=== PATIENT | female | born 1950 | race African-American/Black ===

== ENCOUNTER 2017-02-12 14:03 | Inpatient (IN) | payer MEDICARE, BC ==
[~2017-02-12] VITALS: Ht 162.6 cm; Wt 108.0 kg
[~2017-02-12 14:03] MED LIST: ATOR10TA69 PO; CLOP75TA33 PO; GABA-290 PO; LEVO0.5P2 PO; MIDO10TA PO; REN800 PO
[2017-02-12] MEDS ORDERED: DEXTROSE 50% WATER 50ML SYRINGE IV PRN (16:00)
[2017-02-12] MEDS ORDERED: SIMETHICONE 80MG TABLET CHEW PO PRN (16:15)
[2017-02-12] MEDS ORDERED: MAGNESIUM/ALUMINUM HYDROXIDE/SIMETHICONE 30ML UDC PO PRN (16:15)
[2017-02-12] MEDS ORDERED: ONDANSETRON HCL 4MG/2ML VIAL IV PRN (16:15)
[2017-02-12] MEDS ORDERED: IPRATROPIUM/ALBUTEROL 0.5-3(2.5)MG/3ML NEB HHN PRN (16:15)
[2017-02-12] MEDS ORDERED: DIPHENHYDRAMINE 25MG CAPSULE PO PRN (16:15)
[2017-02-12] MEDS ORDERED: NITROGLYCERIN 0.4MG TABLET SL SL PRN (16:15)
[2017-02-12] MEDS ORDERED: BISACODYL 10MG SUPP PR PRN (16:15)
[2017-02-12] MEDS: DOCUSATE SODIUM 100MG CAPSULE PO SCH ×2 (16:52→16:58)
[2017-02-12] MEDS: SEVELAMER CARBONATE 800 MG TABLET PO SCH (16:52)
[2017-02-12] MEDS: BLOOD SUGAR DIAGNOSTIC STRIP TEST SCH ×2 (16:55→20:58)
[2017-02-12] MEDS: INSULIN LISPRO 100 UNITS/ML SUBCUT SCH ×2 (16:55→20:57)
[2017-02-12] MEDS ORDERED: CLONIDINE 0.1MG TABLET PO PRN (17:45)
[2017-02-12] MEDS: ENOXAPARIN 40MG/0.4ML SYR SUBCUT SCH (17:46)
[2017-02-12] MEDS: ATORVASTATIN CALCIUM 10MG TABLET PO SCH (20:56)
[2017-02-12] MEDS: GABAPENTIN 300MG CAPSULE PO SCH (20:57)
[2017-02-12] MEDS: EPOETIN ALFA 10000UNITS/ML VIAL SUBCUT SCH (20:58)
[2017-02-12] MEDS: MIDODRINE HCL 5MG TABLET PO SCH (20:59)
[2017-02-13] MEDS ORDERED: COLISTIMETHATE SODIUM 150MG/VIAL IV SCH (05:00)
[2017-02-13] MEDS: COLISTIMETHATE 150MG in SODIUM CHLORIDE 0.9% 100ML IV SCH (05:05)
[2017-02-13] MEDS: LEVOTHYROXINE SODIUM 200MCG TABLET PO SCH (06:22)
[2017-02-13] MEDS: MIDODRINE HCL 5MG TABLET PO SCH ×3 (06:22→21:08)
[2017-02-13] MEDS: BLOOD SUGAR DIAGNOSTIC STRIP TEST SCH ×4 (06:22→21:07)
[2017-02-13] MEDS: INSULIN LISPRO 100 UNITS/ML SUBCUT SCH ×4 (06:25→21:00)
[2017-02-13] MEDS: POLYETHYLENE GLYCOL 3350 (17GM) 1 DOSE PACK PO SCH (09:00)
[2017-02-13] MEDS ORDERED: VANCOMYCIN 1 G PREMIX 200 ML IV NR (09:00)
[2017-02-13] MEDS: DOCUSATE SODIUM 100MG CAPSULE PO SCH ×2 (09:00→17:00)
[2017-02-13] MEDS: ENOXAPARIN 40MG/0.4ML SYR SUBCUT SCH (09:56)
[2017-02-13] MEDS: CLOPIDOGREL 75MG TABLET PO SCH (09:58)
[2017-02-13] MEDS: SEVELAMER CARBONATE 800 MG TABLET PO SCH ×3 (09:58→17:07)
[2017-02-13] MEDS ORDERED: PANTOPRAZOLE 40MG DR TABLET PO ONE (10:00)
[2017-02-13] MEDS: MEROPENEM 500 MG in SODIUM CHLORIDE 0.9% 50 ML IV SCH (12:37)
[2017-02-13] MEDS: ATORVASTATIN CALCIUM 10MG TABLET PO SCH (21:07)
[2017-02-13] MEDS: GABAPENTIN 300MG CAPSULE PO SCH (21:08)
[2017-02-14 05:43] LABS: HEMATOCRIT. 27.4 % (36.0-48.0); HEMOGLOBIN. 8.7 g/dL (12.0-16.0); MEAN CORPUSCULAR HEMOGLOBIN 31.4 pg (28.0-32.0); MEAN CORPUSCULAR VOLUME 98.9 fL (81.0-99.0); MEAN PLATELET VOLUME 7.4 fl (7.4-10.4); PLATELET 205 x1000/uL (130-400); RED BLOOD CELL COUNT 2.77 mill/uL (4.2-5.4); RED CELL DISTRIBUTION WIDTH 15.7 % (11.6-14.6)
[2017-02-14] MEDS: LEVOTHYROXINE SODIUM 200MCG TABLET PO SCH (06:08)
[2017-02-14] MEDS: MIDODRINE HCL 5MG TABLET PO SCH ×3 (06:09→21:09)
[2017-02-14] MEDS: BLOOD SUGAR DIAGNOSTIC STRIP TEST SCH ×4 (06:12→21:09)
[2017-02-14] MEDS: INSULIN LISPRO 100 UNITS/ML SUBCUT SCH ×4 (07:32→21:00)
[2017-02-14 08:49] LABS: PLATELET ESTIMATE NORMAL
[2017-02-14] MEDS: POLYETHYLENE GLYCOL 3350 (17GM) 1 DOSE PACK PO SCH (09:00)
[2017-02-14] MEDS: DOCUSATE SODIUM 100MG CAPSULE PO SCH ×2 (09:15→17:06)
[2017-02-14] MEDS: CLOPIDOGREL 75MG TABLET PO SCH (09:15)
[2017-02-14] MEDS: ENOXAPARIN 40MG/0.4ML SYR SUBCUT SCH (09:15)
[2017-02-14] MEDS: SEVELAMER CARBONATE 800 MG TABLET PO SCH ×3 (09:15→17:05)
[2017-02-14] MEDS: MEROPENEM 500 MG in SODIUM CHLORIDE 0.9% 50 ML IV SCH (12:56)
[2017-02-14] MEDS: COLISTIMETHATE 150MG in SODIUM CHLORIDE 0.9% 100ML IV SCH (17:05)
[2017-02-14] MEDS: ATORVASTATIN CALCIUM 10MG TABLET PO SCH (21:08)
[2017-02-14] MEDS: GABAPENTIN 300MG CAPSULE PO SCH (21:09)
[2017-02-15 06:23] LABS: EOSINOPHILS % 6.6 % (0.0-5.0); HEMATOCRIT. 30.2 % (36.0-48.0); HEMOGLOBIN. 9.6 g/dL (12.0-16.0); LYMPHOCYTES % 23.2 % (20.0-50.0); MEAN CORPUSCULAR HEMOGLOBIN 31.3 pg (28.0-32.0); MEAN CORPUSCULAR VOLUME 98.3 fL (81.0-99.0); MEAN PLATELET VOLUME 7.1 fl (7.4-10.4); MONOCYTES % 11.2 % (2.0-8.0); PLATELET 213 x1000/uL (130-400); RED BLOOD CELL COUNT 3.07 mill/uL (4.2-5.4); RED CELL DISTRIBUTION WIDTH 15.6 % (11.6-14.6)
[2017-02-15] MEDS: MIDODRINE HCL 5MG TABLET PO SCH ×3 (06:32→23:32)
[2017-02-15] MEDS: LEVOTHYROXINE SODIUM 200MCG TABLET PO SCH (06:33)
[2017-02-15] MEDS: BLOOD SUGAR DIAGNOSTIC STRIP TEST SCH ×4 (06:36→21:00)
[2017-02-15] MEDS: INSULIN LISPRO 100 UNITS/ML SUBCUT SCH ×4 (07:00→21:00)
[2017-02-15] MEDS: POLYETHYLENE GLYCOL 3350 (17GM) 1 DOSE PACK PO SCH (08:15)
[2017-02-15] MEDS: DOCUSATE SODIUM 100MG CAPSULE PO SCH ×2 (08:23→17:00)
[2017-02-15] MEDS: CLOPIDOGREL 75MG TABLET PO SCH (08:24)
[2017-02-15] MEDS: SEVELAMER CARBONATE 800 MG TABLET PO SCH ×3 (08:24→18:10)
[2017-02-15] MEDS: ENOXAPARIN 40MG/0.4ML SYR SUBCUT SCH (08:26)
[2017-02-15] MEDS: MEROPENEM 500 MG in SODIUM CHLORIDE 0.9% 50 ML IV SCH (13:05)
[2017-02-15] MEDS: EPOETIN ALFA 10000UNITS/ML VIAL SUBCUT SCH (23:30)
[2017-02-15] MEDS: GABAPENTIN 300MG CAPSULE PO SCH (23:30)
[2017-02-15] MEDS: ATORVASTATIN CALCIUM 10MG TABLET PO SCH (23:32)
[2017-02-16] MEDS: COLISTIMETHATE 150MG in SODIUM CHLORIDE 0.9% 100ML IV SCH (04:58)
[2017-02-16] MEDS: BLOOD SUGAR DIAGNOSTIC STRIP TEST SCH ×4 (06:10→21:32)
[2017-02-16] MEDS: LEVOTHYROXINE SODIUM 200MCG TABLET PO SCH (06:10)
[2017-02-16] MEDS: MIDODRINE HCL 5MG TABLET PO SCH ×3 (06:10→21:32)
[2017-02-16] MEDS: INSULIN LISPRO 100 UNITS/ML SUBCUT SCH ×4 (06:11→21:00)
[2017-02-16 07:45] LABS: BASOPHILS % 0.8 % (0.0-2.0); EOSINOPHILS % 7.8 % (0.0-5.0); HEMATOCRIT. 29.9 % (36.0-48.0); HEMOGLOBIN. 9.5 g/dL (12.0-16.0); LYMPHOCYTES % 22.8 % (20.0-50.0); MEAN CORPUSCULAR HEMOGLOBIN 31.5 pg (28.0-32.0); MEAN CORPUSCULAR VOLUME 98.6 fL (81.0-99.0); MEAN PLATELET VOLUME 7.4 fl (7.4-10.4); NEUTROPHILS % 55.6 % (40.0-76.0); PLATELET 205 x1000/uL (130-400); RED BLOOD CELL COUNT 3.03 mill/uL (4.2-5.4); RED CELL DISTRIBUTION WIDTH 15.7 % (11.6-14.6)
[2017-02-16] MEDS: ENOXAPARIN 40MG/0.4ML SYR SUBCUT SCH (08:41)
[2017-02-16] MEDS: SEVELAMER CARBONATE 800 MG TABLET PO SCH ×3 (08:41→18:00)
[2017-02-16] MEDS: DOCUSATE SODIUM 100MG CAPSULE PO SCH ×2 (08:44→17:00)
[2017-02-16] MEDS: POLYETHYLENE GLYCOL 3350 (17GM) 1 DOSE PACK PO SCH (08:44)
[2017-02-16] MEDS: MEROPENEM 500 MG in SODIUM CHLORIDE 0.9% 50 ML IV SCH (11:30)
[2017-02-16] MEDS: MEGESTROL ACETATE 400 MG/10 ML UDC PO SCH (14:58)
[2017-02-16] MEDS: ATORVASTATIN CALCIUM 10MG TABLET PO SCH (21:32)
[2017-02-16] MEDS: GABAPENTIN 300MG CAPSULE PO SCH (21:32)
[2017-02-17] MEDS: LEVOTHYROXINE SODIUM 200MCG TABLET PO SCH (06:12)
[2017-02-17] MEDS: INSULIN LISPRO 100 UNITS/ML SUBCUT SCH ×4 (06:12→20:40)
[2017-02-17] MEDS: BLOOD SUGAR DIAGNOSTIC STRIP TEST SCH ×4 (06:12→20:40)
[2017-02-17] MEDS: MIDODRINE HCL 5MG TABLET PO SCH ×3 (06:12→22:38)
[2017-02-17 07:20] LABS: BASOPHILS % 0.8 % (0.0-2.0); EOSINOPHILS % 9.4 % (0.0-5.0); HEMOGLOBIN. 9.9 g/dL (12.0-16.0); LYMPHOCYTES % 24.2 % (20.0-50.0); MEAN CORPUSCULAR HEMOGLOBIN 31.3 pg (28.0-32.0); MEAN CORPUSCULAR VOLUME 97.9 fL (81.0-99.0); MEAN PLATELET VOLUME 7.1 fl (7.4-10.4); MONOCYTES % 13.5 % (2.0-8.0); NEUTROPHILS % 52.1 % (40.0-76.0); PLATELET 225 x1000/uL (130-400); RED BLOOD CELL COUNT 3.17 mill/uL (4.2-5.4); RED CELL DISTRIBUTION WIDTH 15.3 % (11.6-14.6)
[2017-02-17] MEDS: DOCUSATE SODIUM 100MG CAPSULE PO SCH ×2 (07:59→16:45)
[2017-02-17] MEDS: CLOPIDOGREL 75MG TABLET PO SCH (07:59)
[2017-02-17] MEDS: MEGESTROL ACETATE 400 MG/10 ML UDC PO SCH (07:59)
[2017-02-17] MEDS: SEVELAMER CARBONATE 800 MG TABLET PO SCH ×3 (07:59→16:45)
[2017-02-17] MEDS: POLYETHYLENE GLYCOL 3350 (17GM) 1 DOSE PACK PO SCH (07:59)
[2017-02-17] MEDS: ENOXAPARIN 40MG/0.4ML SYR SUBCUT SCH (08:00)
[2017-02-17] MEDS ORDERED: MEGESTROL ACETATE 400 MG/10 ML UDC PO SCH (10:30)
[2017-02-17] MEDS: MEROPENEM 500 MG in SODIUM CHLORIDE 0.9% 50 ML IV SCH (11:21)
[2017-02-17] MEDS: COLISTIMETHATE 150MG in SODIUM CHLORIDE 0.9% 100ML IV SCH (16:45)
[2017-02-17] MEDS ORDERED: VANCOMYCIN 500 MG PREMIX 100 ML IV SCH (18:00)
[2017-02-17] MEDS: ATORVASTATIN CALCIUM 10MG TABLET PO SCH (22:38)
[2017-02-17] MEDS: GABAPENTIN 300MG CAPSULE PO SCH (22:38)
[2017-02-17] MEDS: EPOETIN ALFA 10000UNITS/ML VIAL SUBCUT SCH (22:39)
[2017-02-18] MEDS: BLOOD SUGAR DIAGNOSTIC STRIP TEST SCH ×4 (06:28→21:43)
[2017-02-18] MEDS: LEVOTHYROXINE SODIUM 200MCG TABLET PO SCH (06:28)
[2017-02-18] MEDS: MIDODRINE HCL 5MG TABLET PO SCH ×3 (06:28→21:38)
[2017-02-18] MEDS: INSULIN LISPRO 100 UNITS/ML SUBCUT SCH ×4 (07:08→21:00)
[2017-02-18] MEDS: ENOXAPARIN 40MG/0.4ML SYR SUBCUT SCH (08:13)
[2017-02-18] MEDS: MEGESTROL ACETATE 400 MG/10 ML UDC PO SCH (08:13)
[2017-02-18] MEDS: SEVELAMER CARBONATE 800 MG TABLET PO SCH ×3 (08:13→18:10)
[2017-02-18] MEDS: DOCUSATE SODIUM 100MG CAPSULE PO SCH ×2 (08:16→16:51)
[2017-02-18] MEDS: POLYETHYLENE GLYCOL 3350 (17GM) 1 DOSE PACK PO SCH (08:16)
[2017-02-18] MEDS: MEROPENEM 500 MG in SODIUM CHLORIDE 0.9% 50 ML IV SCH (11:26)
[2017-02-18] MEDS: ATORVASTATIN CALCIUM 10MG TABLET PO SCH (21:37)
[2017-02-18] MEDS: GABAPENTIN 300MG CAPSULE PO SCH (21:38)
[2017-02-19] MEDS: COLISTIMETHATE 150MG in SODIUM CHLORIDE 0.9% 100ML IV SCH (05:39)
[2017-02-19 06:00] LABS: HEMATOCRIT. 29.6 % (36.0-48.0); HEMOGLOBIN. 9.6 g/dL (12.0-16.0); MEAN CORPUSCULAR HEMOGLOBIN 31.1 pg (28.0-32.0); MEAN CORPUSCULAR VOLUME 96.3 fL (81.0-99.0); MEAN PLATELET VOLUME 7.5 fl (7.4-10.4); PLATELET 221 x1000/uL (130-400); RED BLOOD CELL COUNT 3.08 mill/uL (4.2-5.4); RED CELL DISTRIBUTION WIDTH 15.1 % (11.6-14.6)
[2017-02-19] MEDS: LEVOTHYROXINE SODIUM 200MCG TABLET PO SCH (06:58)
[2017-02-19] MEDS: MIDODRINE HCL 5MG TABLET PO SCH ×2 (06:58→13:23)
[2017-02-19] MEDS: BLOOD SUGAR DIAGNOSTIC STRIP TEST SCH ×4 (07:00→21:00)
[2017-02-19] MEDS: ACETAMINOPHEN 325MG TABLET PO PRN (07:08)
[2017-02-19] MEDS: CLOPIDOGREL 75MG TABLET PO SCH (08:03)
[2017-02-19] MEDS: SEVELAMER CARBONATE 800 MG TABLET PO SCH ×3 (08:03→17:45)
[2017-02-19] MEDS: ENOXAPARIN 40MG/0.4ML SYR SUBCUT SCH (08:03)
[2017-02-19] MEDS: MEGESTROL ACETATE 400 MG/10 ML UDC PO SCH (08:03)
[2017-02-19] MEDS: INSULIN LISPRO 100 UNITS/ML SUBCUT SCH ×4 (08:06→21:00)
[2017-02-19] MEDS: DOCUSATE SODIUM 100MG CAPSULE PO SCH ×2 (08:07→17:00)
[2017-02-19] MEDS: POLYETHYLENE GLYCOL 3350 (17GM) 1 DOSE PACK PO SCH (08:07)
[2017-02-19 08:15] LABS: PLATELET ESTIMATE NORMAL
[2017-02-19] MEDS: MEROPENEM 500 MG in SODIUM CHLORIDE 0.9% 50 ML IV SCH (11:59)
[2017-02-19] MEDS ORDERED: VANCOMYCIN 500 MG PREMIX 100 ML IV NR (18:00)
[2017-02-19] MEDS ORDERED: EPOETIN ALFA 20000 UNIT/ML SUBCUT SCH (21:00)
[2017-02-20] MEDS: MIDODRINE HCL 5MG TABLET PO SCH ×4 (01:40→21:55)
[2017-02-20] MEDS: ATORVASTATIN CALCIUM 10MG TABLET PO SCH ×2 (01:42→21:52)
[2017-02-20] MEDS: EPOETIN ALFA 10000UNITS/ML VIAL SUBCUT SCH (01:42)
[2017-02-20] MEDS: GABAPENTIN 300MG CAPSULE PO SCH ×2 (01:42→21:52)
[2017-02-20] MEDS: BLOOD SUGAR DIAGNOSTIC STRIP TEST SCH ×4 (06:17→21:42)
[2017-02-20] MEDS: LEVOTHYROXINE SODIUM 200MCG TABLET PO SCH (06:24)
[2017-02-20] MEDS: INSULIN LISPRO 100 UNITS/ML SUBCUT SCH ×4 (06:24→21:00)
[2017-02-20] MEDS: POLYETHYLENE GLYCOL 3350 (17GM) 1 DOSE PACK PO SCH (08:14)
[2017-02-20] MEDS: MEGESTROL ACETATE 400 MG/10 ML UDC PO SCH (08:14)
[2017-02-20] MEDS: SEVELAMER CARBONATE 800 MG TABLET PO SCH ×3 (08:14→17:26)
[2017-02-20] MEDS: DOCUSATE SODIUM 100MG CAPSULE PO SCH ×2 (08:14→17:26)
[2017-02-20] MEDS: ENOXAPARIN 40MG/0.4ML SYR SUBCUT SCH (08:14)
[2017-02-20] MEDS: MEROPENEM 500 MG in SODIUM CHLORIDE 0.9% 50 ML IV SCH (11:26)
[2017-02-20] MEDS: COLISTIMETHATE 150MG in SODIUM CHLORIDE 0.9% 100ML IV SCH (17:26)
[2017-02-21] MEDS: LEVOTHYROXINE SODIUM 200MCG TABLET PO SCH (06:03)
[2017-02-21] MEDS: MIDODRINE HCL 5MG TABLET PO SCH ×3 (06:03→21:07)
[2017-02-21] MEDS: BLOOD SUGAR DIAGNOSTIC STRIP TEST SCH ×4 (06:03→21:08)
[2017-02-21] MEDS: INSULIN LISPRO 100 UNITS/ML SUBCUT SCH ×4 (06:04→21:00)
[2017-02-21] MEDS: POLYETHYLENE GLYCOL 3350 (17GM) 1 DOSE PACK PO SCH (08:14)
[2017-02-21] MEDS: DOCUSATE SODIUM 100MG CAPSULE PO SCH ×2 (08:15→17:00)
[2017-02-21] MEDS: CLOPIDOGREL 75MG TABLET PO SCH (08:16)
[2017-02-21] MEDS: MEGESTROL ACETATE 400 MG/10 ML UDC PO SCH (08:16)
[2017-02-21] MEDS: ENOXAPARIN 40MG/0.4ML SYR SUBCUT SCH (08:16)
[2017-02-21] MEDS: SEVELAMER CARBONATE 800 MG TABLET PO SCH ×3 (08:16→17:31)
[2017-02-21] MEDS: MEROPENEM 500 MG in SODIUM CHLORIDE 0.9% 50 ML IV SCH (11:58)
[2017-02-21] MEDS: GABAPENTIN 300MG CAPSULE PO SCH (21:06)
[2017-02-21] MEDS: ATORVASTATIN CALCIUM 10MG TABLET PO SCH (21:07)
[2017-02-21] MEDS: ACETAMINOPHEN 325MG TABLET PO PRN (22:56)
[2017-02-22] MEDS: COLISTIMETHATE 150MG in SODIUM CHLORIDE 0.9% 100ML IV SCH (05:32)
[2017-02-22] MEDS: LEVOTHYROXINE SODIUM 200MCG TABLET PO SCH (06:11)
[2017-02-22] MEDS: BLOOD SUGAR DIAGNOSTIC STRIP TEST SCH ×4 (06:15→21:00)
[2017-02-22] MEDS: MIDODRINE HCL 5MG TABLET PO SCH ×2 (06:15→13:01)
[2017-02-22] MEDS: INSULIN LISPRO 100 UNITS/ML SUBCUT SCH ×4 (06:15→21:00)
[2017-02-22] MEDS: SEVELAMER CARBONATE 800 MG TABLET PO SCH ×3 (08:14→17:31)
[2017-02-22] MEDS: MEGESTROL ACETATE 400 MG/10 ML UDC PO SCH (08:14)
[2017-02-22] MEDS: ENOXAPARIN 40MG/0.4ML SYR SUBCUT SCH (08:14)
[2017-02-22] MEDS: DOCUSATE SODIUM 100MG CAPSULE PO SCH ×2 (08:16→17:00)
[2017-02-22] MEDS: POLYETHYLENE GLYCOL 3350 (17GM) 1 DOSE PACK PO SCH (08:16)
[2017-02-22] MEDS: MEROPENEM 500 MG in SODIUM CHLORIDE 0.9% 50 ML IV SCH (11:19)
[2017-02-23] MEDS: MIDODRINE HCL 5MG TABLET PO SCH ×4 (00:35→21:48)
[2017-02-23] MEDS: EPOETIN ALFA 10000UNITS/ML VIAL SUBCUT SCH (05:56)
[2017-02-23] MEDS: GABAPENTIN 300MG CAPSULE PO SCH ×2 (05:56→21:47)
[2017-02-23] MEDS: LEVOTHYROXINE SODIUM 200MCG TABLET PO SCH (05:57)
[2017-02-23] MEDS: INSULIN LISPRO 100 UNITS/ML SUBCUT SCH ×4 (05:57→21:00)
[2017-02-23] MEDS: BLOOD SUGAR DIAGNOSTIC STRIP TEST SCH ×4 (05:57→21:48)
[2017-02-23] MEDS: ATORVASTATIN CALCIUM 10MG TABLET PO SCH ×2 (05:57→21:47)
[2017-02-23] MEDS: ENOXAPARIN 40MG/0.4ML SYR SUBCUT SCH (09:00)
[2017-02-23] MEDS: MEGESTROL ACETATE 400 MG/10 ML UDC PO SCH (10:06)
[2017-02-23] MEDS: CLOPIDOGREL 75MG TABLET PO SCH (10:07)
[2017-02-23] MEDS: POLYETHYLENE GLYCOL 3350 (17GM) 1 DOSE PACK PO SCH (10:07)
[2017-02-23] MEDS: SEVELAMER CARBONATE 800 MG TABLET PO SCH ×3 (10:07→18:12)
[2017-02-23] MEDS: DOCUSATE SODIUM 100MG CAPSULE PO SCH ×2 (10:07→18:12)
[2017-02-23] MEDS: MEROPENEM 500 MG in SODIUM CHLORIDE 0.9% 50 ML IV SCH (11:48)
[2017-02-23] MEDS: COLISTIMETHATE 150MG in SODIUM CHLORIDE 0.9% 100ML IV SCH (14:17)
[2017-02-24] MEDS: BLOOD SUGAR DIAGNOSTIC STRIP TEST SCH ×4 (06:18→21:00)
[2017-02-24] MEDS: MIDODRINE HCL 5MG TABLET PO SCH ×3 (06:22→22:14)
[2017-02-24] MEDS: LEVOTHYROXINE SODIUM 200MCG TABLET PO SCH (06:22)
[2017-02-24] MEDS: INSULIN LISPRO 100 UNITS/ML SUBCUT SCH ×4 (06:23→21:00)
[2017-02-24] MEDS: POLYETHYLENE GLYCOL 3350 (17GM) 1 DOSE PACK PO SCH (09:00)
[2017-02-24] MEDS: DOCUSATE SODIUM 100MG CAPSULE PO SCH ×2 (09:00→17:00)
[2017-02-24] MEDS: ENOXAPARIN 40MG/0.4ML SYR SUBCUT SCH (09:32)
[2017-02-24] MEDS: SEVELAMER CARBONATE 800 MG TABLET PO SCH ×3 (09:32→17:39)
[2017-02-24] MEDS: MEGESTROL ACETATE 400 MG/10 ML UDC PO SCH (09:34)
[2017-02-24] MEDS: ACETAMINOPHEN 325MG TABLET PO PRN (09:36)
[2017-02-24] MEDS: ATORVASTATIN CALCIUM 10MG TABLET PO SCH (22:13)
[2017-02-24] MEDS: GABAPENTIN 300MG CAPSULE PO SCH (22:13)
[2017-02-24] MEDS: EPOETIN ALFA 10000UNITS/ML VIAL SUBCUT SCH (22:17)
[2017-02-25] MEDS: LEVOTHYROXINE SODIUM 200MCG TABLET PO SCH (06:21)
[2017-02-25] MEDS: MIDODRINE HCL 5MG TABLET PO SCH ×2 (06:21→13:17)
[2017-02-25] MEDS: BLOOD SUGAR DIAGNOSTIC STRIP TEST SCH ×3 (06:22→17:22)
[2017-02-25] MEDS: INSULIN LISPRO 100 UNITS/ML SUBCUT SCH ×3 (06:22→17:00)
[2017-02-25] MEDS: COLISTIMETHATE 150MG in SODIUM CHLORIDE 0.9% 100ML IV SCH (06:22)
[2017-02-25] MEDS: POLYETHYLENE GLYCOL 3350 (17GM) 1 DOSE PACK PO SCH (09:00)
[2017-02-25] MEDS: ENOXAPARIN 40MG/0.4ML SYR SUBCUT SCH (09:00)
[2017-02-25] MEDS: DOCUSATE SODIUM 100MG CAPSULE PO SCH ×2 (09:00→17:00)
[2017-02-25] MEDS: SEVELAMER CARBONATE 800 MG TABLET PO SCH ×3 (09:41→17:22)
[2017-02-25] MEDS: CLOPIDOGREL 75MG TABLET PO SCH (09:41)
[2017-02-25] MEDS: MEGESTROL ACETATE 400 MG/10 ML UDC PO SCH (09:42)
[2017-02-25 14:33] VITALS: BP 97/60
== END 2017-02-25 19:40 | DRG 314 ==
PROVIDERS: ADMIT Psychiatry & Neurology Neurology; ATTEND Internal Medicine
PROC: 5A1D60Z (ICD-10-PCS; principal; 2017-02-15)
DX: I31.3 Pericardial effusion (noninflammatory) (principal); N18.6 End stage renal disease; L02.611 Cutaneous abscess of right foot; E46 Unspecified protein-calorie malnutrition; Z68.41 Body mass index [BMI] 40.0-44.9, adult; I13.11 Hypertensive heart and chronic kidney disease without heart failure, with stage 5 chronic kidney disease, or end stage renal disease; J98.11 Atelectasis; N25.81 Secondary hyperparathyroidism of renal origin; D63.8 Anemia in other chronic diseases classified elsewhere; E03.9 Hypothyroidism, unspecified; E05.00 Thyrotoxicosis with diffuse goiter without thyrotoxic crisis or storm; E11.22 Type 2 diabetes mellitus with diabetic chronic kidney disease; L97.509 Non-pressure chronic ulcer of other part of unspecified foot with unspecified severity; E78.5 Hyperlipidemia, unspecified; E66.01 Morbid (severe) obesity due to excess calories; E11.42 Type 2 diabetes mellitus with diabetic polyneuropathy; E11.621 Type 2 diabetes mellitus with foot ulcer; E87.5 Hyperkalemia; I25.10 Atherosclerotic heart disease of native coronary artery without angina pectoris; I73.9 Peripheral vascular disease, unspecified; L97.519 Non-pressure chronic ulcer of other part of right foot with unspecified severity; E11.628 Type 2 diabetes mellitus with other skin complications; Z99.2 Dependence on renal dialysis; Z88.0 Allergy status to penicillin; Z89.411 Acquired absence of right great toe; Z89.412 Acquired absence of left great toe; Z79.4 Long term (current) use of insulin
CPT/HCPCS: 36415; 71020; 80048; 80202; 82962; 83735; 85025; 93005; 93970; 97110; 97112; 97116; 97162; 97166; 97530; 97535; J0770; J0885; J1650; J2185; J3370; J7030; J7040; J7050; J7620

== ENCOUNTER 2017-09-05 06:25 | Emergency (ER) | payer MEDICARE, BC ==
[~2017-09-05] VITALS: Ht 165.1 cm; Wt 108.1 kg
[2017-09-05 07:31] LABS: INR 1.1; PROTHROMBIN TIME 11.1 sec (9.4-11.6)
[2017-09-05 07:36] LABS: BASOPHILS % 1.3 % (0.0-2.0); EOSINOPHILS % 4.8 % (0.0-5.0); HEMATOCRIT. 37.6 % (36.0-48.0); HEMOGLOBIN. 12.1 g/dL (12.0-16.0); LYMPHOCYTES % 30.9 % (20.0-50.0); MEAN CORPUSCULAR HEMOGLOBIN 32.7 pg (28.0-32.0); MEAN CORPUSCULAR VOLUME 101.9 fL (81.0-99.0); MEAN PLATELET VOLUME 7.6 fl (7.4-10.4); MONOCYTES % 9.8 % (2.0-8.0); NEUTROPHILS % 53.2 % (40.0-76.0); PLATELET 316 x1000/uL (130-400); RED BLOOD CELL COUNT 3.69 mill/uL (4.2-5.4); RED CELL DISTRIBUTION WIDTH 14.5 % (11.6-14.6)
[2017-09-05 07:39] LABS: CARBON DIOXIDE 26 mEq/L (21-32); CHLORIDE 105 mEq/L (98-107); TROPONIN I < 0.02 ng/mL (0.00-0.04)
[2017-09-05 15:35] VITALS: BP 96/58
== END 2017-09-05 18:56 | disposition left against medical advice (07) ==
LOC: ER 06:25 → EDBEDREQTM 08:43 → EDBEDREQ 08:43 → CANRESERV 17:04 → ENRESERV 17:04 → ER 18:56 → CANBEDREQ 09-06 01:15
DX: R07.2 Precordial pain (principal); N18.6 End stage renal disease; D63.1 Anemia in chronic kidney disease; E05.90 Thyrotoxicosis, unspecified without thyrotoxic crisis or storm; E78.00 Pure hypercholesterolemia, unspecified; Z99.2 Dependence on renal dialysis; Z88.0 Allergy status to penicillin; Z88.1 Allergy status to other antibiotic agents; Z79.899 Other long term (current) drug therapy; Z91.040 Latex allergy status
CPT/HCPCS: 36415; 80053; 83880; 84484; 85025; 85610; 93005; 99285